=== PATIENT | female | born 1965 | race Caucasian/White ===

== ENCOUNTER 2024-08-14 08:06 | Day surgery (SDC) | payer OTHER ==
[~2024-08-14] VITALS: Ht 157.5 cm; Wt 61.2 kg
[2024-08-14] MEDS ORDERED: SIMETHICONE 40 MG/0.6 ML ML ONE (08:17)
[2024-08-14] MEDS ORDERED: MEPERIDINE 100 MG INJ. 100 MG/ML VIAL ONE (08:17)
[2024-08-14] MEDS ORDERED: MIDAZOLAM HCL 5 MG/5 ML VIAL ONE (08:17)
[2024-08-14] MEDS ORDERED: fentaNYL CITRATE/PF 100 MCG/2 ML AMP ONE (09:56)
[2024-08-14 14:16] VITALS: O2SAT 97
[2024-08-14 14:23] VITALS: BP_SYST 109; PULSE 66; RESP 16
== END 2024-08-14 11:43 | disposition home or self-care (01) ==
LOC: SDS 08:06 → SMU 08:07 → SDS 11:43
PROVIDERS: ATTEND Internal Medicine
DX: Z09 Encounter for follow-up examination after completed treatment for conditions other than malignant neoplasm (principal); K63.5 Polyp of colon; K64.8 Other hemorrhoids; E11.9 Type 2 diabetes mellitus without complications; Z98.84 Bariatric surgery status; Z79.84 Long term (current) use of oral hypoglycemic drugs; Z79.899 Other long term (current) drug therapy
CPT/HCPCS: 45385; 99152; 36415; 82948; 88305; 99153; G0378; J2250; J3010; J2175